=== PATIENT | female | born 1995 | race Caucasian/White ===

== ENCOUNTER 2020-02-14 14:08 | Inpatient (IN) | payer OTHER ==
[~2020-02-14] VITALS: Ht 162.6 cm; Wt 73.9 kg
[2020-02-14] MEDS ORDERED: TOPROL XL50 M1 (14:43)
[2020-02-14] MEDS ORDERED: PROTONIX20 MG (14:44)
[2020-02-14] MEDS ORDERED: OBSTETRIX DHA1 EACH (14:44)
[2020-02-17] MEDS ORDERED: AMLODIPINE BESYL5 MG PO (11:16)
[2020-02-17] MEDS ORDERED: PEPCID AC20 MG PO (11:16)
== END 2020-02-23 17:56 | disposition home or self-care (01) | DRG 831 ==
LOC: ER 14:08 → OB/GYN 22:40
PROVIDERS: ADMIT Obstetrics & Gynecology; ATTEND Obstetrics & Gynecology
PROC: BW40ZZZ Ultrasonography of Abdomen (ICD-10-PCS; 2020-02-15)
PROC: 05HY33Z Insertion of Infusion Device into Upper Vein, Percutaneous Approach (ICD-10-PCS; principal; 2020-02-17)
PROC: BW3GZZZ Magnetic Resonance Imaging (MRI) of Pelvic Region (ICD-10-PCS; 2020-02-21)
PROC: BY49ZZZ Ultrasonography of First Trimester, Single Fetus (ICD-10-PCS; 2020-02-21)
PROC: BW30ZZZ Magnetic Resonance Imaging (MRI) of Abdomen (ICD-10-PCS; 2020-02-21)
DX: O99.611 Diseases of the digestive system complicating pregnancy, first trimester (principal); K35.32 Acute appendicitis with perforation, localized peritonitis, and gangrene, without abscess; O10.011 Pre-existing essential hypertension complicating pregnancy, first trimester; Z3A.10 10 weeks gestation of pregnancy
CPT/HCPCS: 72198; 74181; 74185

== ENCOUNTER → 2020-05-14 | Outpatient (CLI) | payer OTHER ==
[~2020-05-14] MED LIST: AMLODIPINE BESYL5 MG PO; OBSTETRIX DHA1 EACH; PEPCID AC20 MG PO; PROTONIX20 MG; TOPROL XL50 M1
== END | disposition home or self-care (01) ==
LOC: PRENATAL 13:00
PROVIDERS: ATTEND Obstetrics & Gynecology Maternal & Fetal Medicine
DX: O35.0XX1 Maternal care for (suspected) central nervous system malformation in fetus, fetus 1 (principal); O35.3XX1 Maternal care for (suspected) damage to fetus from viral disease in mother, fetus 1; O98.512 Other viral diseases complicating pregnancy, second trimester; O10.012 Pre-existing essential hypertension complicating pregnancy, second trimester; Z36.89 Encounter for other specified antenatal screening; Z3A.21 21 weeks gestation of pregnancy

== ENCOUNTER 2020-08-25 13:30 | Inpatient (IN) | payer OTHER ==
[~2020-08-25] VITALS: Ht 165.1 cm; Wt 98.4 kg
[2020-09-09] MEDS ORDERED: Procardia Xl 30MG TA PO (10:18)
== END 2020-09-09 11:48 | disposition home or self-care (01) | DRG 806 ==
LOC: LDR 09-06 06:35 → OB/GYN 09-06 13:30 → SURG-SUITE 09-07 16:54
PROVIDERS: ADMIT Obstetrics & Gynecology; ATTEND Obstetrics & Gynecology
PROC: 3E0P7VZ Introduction of Hormone into Female Reproductive, Via Natural or Artificial Opening (ICD-10-PCS; 2020-09-06)
PROC: 4A1HXFZ Monitoring of Products of Conception, Cardiac Rhythm, External Approach (ICD-10-PCS; 2020-09-06)
PROC: 10E0XZZ Delivery of Products of Conception, External Approach (ICD-10-PCS; principal; 2020-09-07)
PROC: 0KQM0ZZ Repair Perineum Muscle, Open Approach (ICD-10-PCS; 2020-09-07)
PROC: 0W8NXZZ Division of Female Perineum, External Approach (ICD-10-PCS; 2020-09-07)
PROC: 10907ZC Drainage of Amniotic Fluid, Therapeutic from Products of Conception, Via Natural or Artificial Opening (ICD-10-PCS; 2020-09-07)
PROC: 3E033VJ Introduction of Other Hormone into Peripheral Vein, Percutaneous Approach (ICD-10-PCS; 2020-09-07)
DX: O70.1 Second degree perineal laceration during delivery (principal); O10.02 Pre-existing essential hypertension complicating childbirth; Z37.0 Single live birth; Z3A.38 38 weeks gestation of pregnancy; Z20.822 Contact with and (suspected) exposure to COVID-19

== ENCOUNTER 2021-10-18 09:48 | Outpatient (CLI) | payer OTHER ==
[~2021-10-18 09:48] MED LIST changes: +Procardia Xl 30MG TA PO
== END 2021-10-18 11:40 | disposition home or self-care (01) ==
LOC: PRENATAL 09:48
PROVIDERS: ATTEND Obstetrics & Gynecology Maternal & Fetal Medicine
DX: O35.0XX0 Maternal care for (suspected) central nervous system malformation in fetus, not applicable or unspecified (principal); O99.891 Other specified diseases and conditions complicating pregnancy; O35.3XX0 Maternal care for (suspected) damage to fetus from viral disease in mother, not applicable or unspecified

== ENCOUNTER 2021-12-14 10:14 | Outpatient (CLI) | payer OTHER | END 2021-12-14 11:17 | disposition home or self-care (01) | LOC: PRENATAL 10:14 | PROVIDERS: ATTEND Obstetrics & Gynecology Maternal & Fetal Medicine | DX: O26.849 Uterine size-date discrepancy, unspecified trimester (principal); O10.019 Pre-existing essential hypertension complicating pregnancy, unspecified trimester; Z3A.28 28 weeks gestation of pregnancy ==

== ENCOUNTER 2022-01-31 08:55 | Outpatient (CLI) | payer OTHER | END 2022-01-31 09:57 | disposition home or self-care (01) | LOC: PRENATAL 08:55 | PROVIDERS: ATTEND Obstetrics & Gynecology Maternal & Fetal Medicine | DX: O26.849 Uterine size-date discrepancy, unspecified trimester (principal); O10.019 Pre-existing essential hypertension complicating pregnancy, unspecified trimester; Z3A.35 35 weeks gestation of pregnancy ==

== ENCOUNTER 2022-02-14 14:30 | Inpatient (IN) | payer OTHER ==
[~2022-02-14] VITALS: Ht 165.1 cm; Wt 93.0 kg
[2022-02-21] MEDS ORDERED: NIFEDIPINE ER30 M1 (11:52)
== END 2022-02-22 12:47 | disposition home or self-care (01) | DRG 807 ==
LOC: LDR 02-20 06:20 → SURG-SUITE 02-20 16:20 → OB/GYN 03-03 14:30
PROVIDERS: ADMIT Obstetrics & Gynecology; ATTEND Obstetrics & Gynecology
PROC: 10E0XZZ Delivery of Products of Conception, External Approach (ICD-10-PCS; principal; 2022-02-20)
PROC: 0KQM0ZZ Repair Perineum Muscle, Open Approach (ICD-10-PCS; 2022-02-20)
PROC: 3E033VJ Introduction of Other Hormone into Peripheral Vein, Percutaneous Approach (ICD-10-PCS; 2022-02-20)
PROC: 3E0P7VZ Introduction of Hormone into Female Reproductive, Via Natural or Artificial Opening (ICD-10-PCS; 2022-02-20)
PROC: 4A1HXCZ Monitoring of Products of Conception, Cardiac Rate, External Approach (ICD-10-PCS; 2022-02-20)
DX: O70.1 Second degree perineal laceration during delivery (principal); Z37.0 Single live birth; Z3A.38 38 weeks gestation of pregnancy; Z20.822 Contact with and (suspected) exposure to COVID-19